=== PATIENT | male | born 1985 | race Caucasian/White ===

== ENCOUNTER 2024-01-24 20:20 | Emergency (ER) | payer SELFPAY ==
[2024-01-24 20:25] VITALS: BP 138/76; PULSE 98; TEMP 36.8; O2SAT 98; BMI 23.6
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
[2024-01-24] MEDS: METHYLPREDNISOLONE SOD SUCC PF 125 MG/2 ML VIAL IM (20:53)
--- NOTE | 2024-01-24 21:01 | PC.NURSE ---
reports hives from top of head to feet. thinks its a reaction to a medication he had while in a different hospital 01/15. states he has been taking benadryl but does not like to. patient last dose 1 hour before coming to Ed. non rasised red hives all over seen. c/o itching. does not want blood pressure or other vitals taken does not want to get into gown
== END 2024-01-24 21:00 | disposition home or self-care (01) ==
PROVIDERS: Emergency Provider Emergency Medicine
DX: L50.9 Urticaria, unspecified (principal)
CPT/HCPCS: 96372; 99284; J2919

== ENCOUNTER 2024-02-05 11:44 | Emergency (ER) | payer SELFPAY ==
[2024-02-05 11:52] VITALS: BP 126/80; PULSE 111; TEMP 36.7; O2SAT 99; BMI 32.5
--- NOTE | 2024-02-05 11:57 | ECG_ITS ---
[facility] Test Date: 2024-02-05 Pat Name: KAMARI EASTMAN Department: Room: - Gender: Male Senior Front End Engineer: : 1985 Requested By: [id number] Order Number: [id number] Reading MD: DIEGO MORIN Measurements Intervals [place] Rate: 100 P: 60 NM: 110 QRS: 64 QRSD: 80 T: 44 QT: 344 QTc: 401 Interpretive Statements 1120 Sinus tachycardia 2210 Short NM interval 9150 abnormal ECG Compared to ECG 06/20/2022 12:41:36 Short NM interval now present Electronically Signed On 02-08-2024 7:31:23 EDT by DIEGO MORIN
[2024-02-05] MEDS: 0.9 % SODIUM CHLORIDE 1,000 ML 1000 ML IV (12:12)
[2024-02-05] MEDS: METHYLPREDNISOLONE SOD SUCC PF 125 MG/2 ML VIAL IVP (12:12)
[2024-02-05] MEDS: FAMOTIDINE/PF 20 MG/2 ML VIAL IV (12:12)
[2024-02-05] MEDS: KETOROLAC TROMETHAMINE 30 MG/ML VIAL IVP (13:28)
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
== END 2024-02-05 14:50 | disposition left against medical advice (07) ==
PROVIDERS: Emergency Provider Emergency Medicine
DX: L50.9 Urticaria, unspecified (principal); Z53.29 Procedure and treatment not carried out because of patient's decision for other reasons
CPT/HCPCS: 93005; 96374; 96375; 99284; J1885; J2919